=== PATIENT | male | born 1965 | race Caucasian/White ===

== ENCOUNTER → 2017-08-22 | Outpatient (CLI) | payer SELFPAY ==
--- NOTE | 2017-08-22 15:52 | RADIOLOGY IMAGING REPORT ---
[place] [facility] [place] Nii Bhakta : 1965 MR: [id number] V: [id number] EXAM DATE: ORDERING PHYSICIAN: LINCOLN DELGADO TECHNOLOGIST: Location: [facility] Patient: Nii Bhakta : 1965 Visit/Account:[id number] Date of Sevice: 08/22/2017 TESTICULAR HISTORY: Left testes swelling times several months COMPARISON: None. FINDINGS: Testes: Right testicle measures 4.6 x 2.2 x 3.4 centers. Left testicle measures 4.7 x 2.3 x 2.7 cm Symmetric and unremarkable blood flow documented by color and Duplex Doppler ultrasound. Epididymides: Head epididymis on the right measures 0.9 cm on the left 1.1 cm Blood flow is unremark able in each epididymis by color Doppler ultrasound. Hydrocele: Tiny on the right Varicocele: There is a left-sided varicocele IMPRESSION: Left-sided varicocele Tiny right hydrocele Report Dictated By: Cecilia Velasquez MD at 08/22/2017 3:46 PM Report E-Signed By: Cecilia Velasquez MD at 08/22/2017 3:49 PM WSN:[id number]
== END ==
LOC: US 14:13
PROVIDERS: ATTEND Surgery
DX: I86.1 Scrotal varices (principal); N43.3 Hydrocele, unspecified
CPT/HCPCS: 76870; 81001; 87088

== ENCOUNTER → 2017-11-30 | Outpatient (CLI) | payer SELFPAY ==
--- NOTE | 2017-11-30 17:17 | RT STRESS TEST REPORT ---
FACILITY: [facility] PATIENT NAME: KIMO SANTANA : [id number] MR: [id number] V: [id number] EXAM DATE: ORDERING PHYSICIAN: ASHLEY HESTER TECHNOLOGIST: Isabel Acquisition Time: 2017-11-30 13:58:33 Total Exercise Time: 00:10:30 Test Indications: chest pressure Medications: Protocol: BRUCE2 Max HR: 169 BPM 101% of Pred: 167 BPM Max BP: 223/064 mmHG Max Work Load: 12.5 METS Patient exercised 10.5 minutes under Van 2 Protocol. He did not experience any chest pain or signif icant dyspnea. BP response was somewhat exaggereated. No dysrhythmias were noted. No significant ST-T changes were noted. IMPRESSION: Low Probability of Ischemia. Confirmed by DEVIKA NEWELL ([id number]) on 11/30/2017 5:16:08 PM Referred By: Overread By: DEVIKA NEWELL
== END ==
LOC: RESP 02:34
PROVIDERS: ATTEND Nurse Practitioner Family
DX: R07.9 Chest pain, unspecified (principal)
CPT/HCPCS: 93017